=== PATIENT | female | born 1995 ===

== ENCOUNTER 2018-07-09 00:44 | Emergency (ER) | payer MEDICAID ==
[2018-07-09] MEDS ORDERED: LIDOCAINE 2% W/ EPI MPF 20 ML SOL ONE (00:55)
[2018-07-09] MEDS ORDERED: LIDOCAINE 2% W/ EPI MPF 20 ML SOL INFIL ONE (01:00)
[2018-07-09] MEDS ORDERED: TDAP VACCINE 0.5 ML SUS IM ONE ×2 (01:02→01:25)
[2018-07-09 01:08] LABS: BASOPHILS % (AUTO) 1 % (0-3); EOSINOPHILS % (AUTO) 1 % (0-9); HEMATOCRIT 45 % (35-47); HEMOGLOBIN 14.8 gm/dl (12.0-15.5); LYMPHOCYTES % (AUTO) 17.6 % (10-50); MEAN CORPUSCULAR HEMOGLOBIN 28.9 pg (27.0-32.0); MEAN CORPUSCULAR HGB CONC 32.9 gm/dl (32.0-36.0); MEAN CORPUSCULAR VOLUME 88 fL (81-99); MONOCYTES % (AUTO) 8.8 % (0-12); NEUTROPHILS % (AUTO) 72.2 % (37-80)
[2018-07-09 01:19] LABS: ALBUMIN 4.2 gm/dl (3.4-5.0); BILIRUBIN,TOTAL 1.2 mg/dl (0.2-1.0); CALCIUM 9.1 mg/dl (8.5-10.1); CARBON DIOXIDE 20.5 mEq/L (21-32); CREATININE 0.91 mg/dl (0.60-1.00); POTASSIUM 3.4 mMol/L (3.5-5.1); TOTAL PROTEIN 7.8 gm/dl (6.4-8.2)
[2018-07-09] MEDS ORDERED: BACITRACIN 500 U/GM OIN TOP ONE ×2 (01:20→01:25)
[2018-07-09 01:32] VITALS: TEMP 97.2
[2018-07-09 02:12] LABS: AMPHETAMINES POSITIVE (NEGATIVE); BARBITUATES NEGATIVE (NEGATIVE); BENZODIAZEPINES NEGATIVE (NEGATIVE); CANNABINOL(THC) POSITIVE (NEGATIVE); COCAINE(COC) NEGATIVE (NEGATIVE); METHADONE NEGATIVE (NEGATIVE); METHAMPHETAMINES POSITIVE (NEGATIVE); OPIATES(OPI) NEGATIVE (NEGATIVE); OXYCODONE(OXY) NEGATIVE (NEGATIVE); PROPOXYPHENE(PPX) NEGATIVE (NEGATIVE); TRICYCLIC ANTIDEPRESSANTS NEGATIVE (NEGATIVE)
[2018-07-09 03:13] VITALS: BP 127/87; PULSE 105; RESP 16; O2SAT 95
== END 2018-07-09 02:52 | disposition home or self-care (01) | DRG 605 ==
LOC: ED 00:44
DX: S01.81XA Laceration without foreign body of other part of head, initial encounter (principal); R55 Syncope and collapse; F12.10 Cannabis abuse, uncomplicated; Z72.89 Other problems related to lifestyle; F15.90 Other stimulant use, unspecified, uncomplicated
CPT/HCPCS: 12011; 36415; 80053; 80305; 85025; 90471; 90715; 93005; 99212; 99285; A6402; A9270-GY

== ENCOUNTER 2018-07-15 08:44 | Emergency (ER) | payer MEDICAID ==
[2018-07-15 09:00] VITALS: BP 109/72; PULSE 62; RESP 16; TEMP 95.8; O2SAT 97
== END 2018-07-15 09:45 | disposition home or self-care (01) | DRG 951 ==
LOC: ED 08:44
DX: Z48.02 Encounter for removal of sutures (principal)
CPT/HCPCS: 99282